=== PATIENT | male | born 1995 | race Caucasian/White ===

== ENCOUNTER 2023-07-21 15:26 | Emergency (ER) | payer OTHER ==
[~2023-07-21] VITALS: Ht 188 cm; Wt 97.5 kg
[~2023-07-21 15:26] MED LIST: ALBU90OI INH; CYCL10 PO; Crutch1 EACH MISC; IBUP600 PO; IBUP800 PO; Percocet 5-3251 EACH PO; Prednisone20 MG PO; Zithromax250 MG PO
[2023-07-21 15:27] VITALS: BP 170/84
[2023-07-21 15:48] LABS: BASOPHILS ABSOLUTE AUTO 0.07 K/mm3 (0.00-0.23); BASOPHILS PERCENT AUTO 1 % (0-2); EOSINOPHILS ABSOLUTE AUTO 0.05 K/mm3 (0.00-0.68); EOSINOPHILS PERCENT AUTO 1 % (0-6); Hematocrit 43.8 % (37.0-53.0); Hemoglobin 15.1 g/dL (13.5-17.5); IMMATURE GRAN ABSOLUTE AUTO 0.21 K/mm3 (0.00-0.10); IMMATURE GRAN PERCENT AUTO 3 % (0-1); LYMPHOCYTES PERCENT AUTO 28 % (21-46); MONOCYTES ABSOLUTE AUTO 0.68 K/mm3 (0.16-1.47); MONOCYTES PERCENT AUTO 8 % (4-13); Mean Corpuscular HGB 30.6 pg (26.0-34.0); Mean Corpuscular HGB Conc 34.5 g/dL (31.5-36.5); Mean Corpuscular Volume 89 fL (80-100); Mean Platelet Volume 12.3 fL (9.1-12.4); NEUTROPHILS ABSOLUTE AUTO 5.04 K/mm3 (1.96-9.15); NEUTROPHILS PERCENT AUTO 60 % (41-73); Platelet Count 199 K/mm3 (150-400); RDW Coefficient Variation 12.7 % (11.7-14.2); RDW Standard Deviation 41.1 fL (35.1-46.3); Red Blood Cell Count 4.93 M/mm3 (4.30-5.90); White Blood Cell Count 8.45 K/mm3 (4.00-11.30)
[2023-07-21 16:05] LABS: International Normalized Ratio 1.07; Prothrombin Time Results 11.4 Sec (9.7-11.5)
[2023-07-21] MEDS ORDERED: Acetaminophen 500 MG Tab PO ONE (16:05)
[2023-07-21 16:07] LABS: Alanine Aminotransfer (ALT/SGP 42 U/L (12-78); Albumin, Blood 4.4 g/dL (3.4-5.0); Albumin/Globulin Ratio 1.4 (0.8-1.8); Alk Phos 98 U/L (50-136); Anion Gap 9 mmol/L (3-11); Aspartate Aminotrans (AST/SGOT 40 U/L (12-37); Bilirubin, Total 0.6 mg/dL (0.1-1.0); Blood Urea Nitrogen 14 mg/dL (8-24); Bun/Creatinine Ratio 13.5 (12.0-20.0); CO2, Blood 29 mmol/L (21-32); Calcium, Blood 9.5 mg/dL (8.5-10.1); Chloride, Blood 107 mmol/L (98-108); Creatinine, Blood 1.04 mg/dL (0.60-1.20); Ethanol (Alcohol), Blood, Med <3 mg/dL; Globulin, Blood 3.2 g/dL (2.2-4.0); Glomerular Filtration Rate 102 (60-); Glucose, Blood 102 mg/dL (70-99); Potassium, Blood 3.5 mmol/L (3.5-5.5); Sodium, Blood 141 mmol/L (136-145); Total Protein, Blood 7.6 g/dL (6.4-8.2)
--- NOTE | 2023-07-21 16:08 | NUR ---
"Spiritual Care | Trauma Family Support Pt. is being treated for a fall. Spouse and daughter are present in the ED room. Once plans for the Pt. to go to [facility], this software test manager escorts Spouse and daughter to the consult room. Facilitate a life review. Spouse verbalizes that she is a new [facility] Nurse. Establish rapport with Spouse and Daughter. Once Pt. is back in his room, this software test manager excused himself. Pt. and spouse verbalize gratitude for the spiritual care support."
[2023-07-21] MEDS ORDERED: Ketorolac Tromethamine 30mg Vial IV ONE (17:00)
[2023-07-21] MEDS ORDERED: IBUP600 PO (17:36)
== END 2023-07-21 17:50 | disposition home or self-care (01) ==
LOC: ER 15:26
PROVIDERS: Student in an Organized Health Care Education/Training Program
DX: S30.0XXA Contusion of lower back and pelvis, initial encounter (principal); S27.321A Contusion of lung, unilateral, initial encounter; W17.89XA Other fall from one level to another, initial encounter
CPT/HCPCS: 70450; 71260; 72125; 74177; 80053; 85025; 85610; 96374-59; 99284-25; A9270; J1885; L0160; Q9967